=== PATIENT | female | born 1940 | race Caucasian/White ===

== ENCOUNTER 2019-06-20 11:13 | Inpatient (IN) | payer OTHER ==
--- NOTE | 2019-06-20 12:21 | PDOC ---
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 Moldovan speaking only , history per son and through phone with granddaughter. Reports that patient threw up twice in the car, bright yellow/green bile, then another time in a [facility] bathroom, another in ED. After the initial vomitus, patient complained of epigastric pain. Patient has been having diarrhea for the past 2 months since leaving rehab after CVA, has follow up for stool sample results tomorrow. No recent travel, sick contacts, fevers/chills, [place], CP, SOB, urinary changes. Endorses abdominal pain, diarrhea, nausea/vomiting. Past History - Past Medical History Allergies/Adverse Reactions: Allergies Allergy/AdvReac Type Severity Reaction Status Date / Time No Known Allergies Allergy Verified 06/20/19 13:17 Home Medications: Ambulatory Orders Apixaban [Eliquis] 5 mg PO DAILY 06/20/19 Atorvastatin Ca [Lipitor] 80 mg PO HS 06/20/19 Carvedilol [Coreg -] 25 mg PO BID 06/20/19 Lisinopril [Prinivil] 20 mg PO DAILY 06/20/19 Metformin HCl [Glucophage] 500 mg PO BID 06/20/19 Omeprazole 20 mg PO DAILY 06/20/19 Paroxetine HCl [Paxil] 20 mg PO DAILY 06/20/19 Tamsulosin HCl [Flomax -] 0.4 mg PO HS 06/20/19 levETIRAcetam [Keppra -] 500 mg PO BID 06/20/19 Review of Systems - Review of Systems Constitutional: No: Chills, Diaphoresis, Fever HEENTM: No: Recent change in vision, Hearing Loss, Difficulty Swallowing Respiratory: No: Cough, Shortness of Breath Cardiac (ROS): No: Chest Pain, Edema, Chest Tightness ABD/GI: Yes: Diarrhea (2 weeks), Nausea, Vomiting : No: Burning, Dysuria, Discharge, Frequency, Flank Pain Musculoskeletal: No: Back Pain Neurological: Yes: Pre-Existing Deficit (R sided, 2/5 strength in arm and leg, aphasia). No: Headache *Physical Exam - Physical Exam Comments: 06/20/19 13:50 Gen: well-developed, well-nourished, NAD Neuro: non-cooperative with orientation questions, CN II-XII intact, FTN intact with L side, EOMI, PERRLA, 2/5 strength in R arm and leg, 5/5 elsewhere, SILT HEENT: atraumatic, normocephalic, dry mucous membranes Neck: trachea midline, supple CV: regular rate, regular rhythm, no murmurs, rubs, or gallops Pulm: CTA b/l, no wheezing Abd: soft, non-distended, epigastric tenderness MSK: normal musculature, intact pulses Extr: no edema, no deformities Skin: warm, dry ED Treatment Course - LABORATORY CBC & Chemistry Diagram: 06/20/19 12:30 06/20/19 12:30 Medical Decision Making - Medical Decision Making 06/20/19 13:52 Concern for viral gastroenteritis vs ACS vs gastritis v GERD. - CBC, CMP, trop - EKG, CXR - UA/UC - coags - lipase - lactic acid - 1L NS, Zofran, Maalox, Pepcid - reassess 06/20/19 13:56 EKG normal sinus at 60 bpm, LVH, normal intervals, no ST segment elevations or T wave inversions 06/20/19 16:16 CXR no acute changes. WBC 10.4, no left shift. Mg 1.5, repleting with 2g Mg. Will f/u CT abd/pelvis. 06/20/19 16:44 CT abd/pelvis with enteritis, dilated CBD to 2 cm, hepatic steatosis, moderate hiatal hernia. 06/20/19 17:02 Admit for intractable vomiting, can get MRCP while inpatient. 06/20/19 18:42 Son has to go home, phone number is [phone]. Discharge - Discharge Information Problems reviewed: Yes Clinical Impression/Diagnosis: Enteritis, Intractable vomiting, Common bile duct dilation - Follow up/Referral - Patient Discharge Instructions - Post Discharge Activity
[2019-06-20] MEDS ORDERED: SODIUM CHLORIDE 0.9% 500 ML INFUS.BAG IV ONE (12:29)
[2019-06-20 12:50] LABS: BASO % 0.5 % (0-2.0); EOS % 1.4 % (0-4.5); HEMATOCRIT 36.9 % (32.4-45.2); HEMOGLOBIN 12.1 GM/dL (10.7-15.3); LYMPH % 22.7 % (8-40); MCH 28.5 pg (25.7-33.7); MCHC 32.8 g/dl (32.0-36.0); MEAN CELL VOLUME 87.1 fl (80-96); MEAN PLT VOLUME 9.4 fl (7.5-11.1); MONO % 5.6 % (3.8-10.2); NEUT % 69.8 % (42.8-82.8); PLATELET COUNT 204 K/MM3 (134-434); RBC 4.24 M/mm3 (3.60-5.2); RDW 13.9 % (11.6-15.6); WHITE BLOOD COUNT 10.4 K/mm3 (4.0-10.0)
[2019-06-20 13:01] LABS: INR 1.23 (0.83-1.09); PROTHROMBIN TIME (PATIENT) 14.5 SEC (9.7-13.0)
[2019-06-20 13:35] LABS: ALBUMIN 3.9 g/dl (3.4-5.0); ALK PHOS 72 U/L (45-117); ANION GAP 9 MMOL/L (8-16); BILIRUBIN,TOTAL 0.7 mg/dL (0.2-1); CALCIUM 9.1 mg/dL (8.5-10.1); CHLORIDE 105 mmol/L (98-107); CO2 28 mmol/L (21-32); CREATININE 0.6 mg/dL (0.55-1.3); GLUCOSE,RANDOM 156 mg/dL (74-106); LIPASE 75 U/L (73-393); MAGNESIUM 1.5 mg/dL (1.8-2.4); PHOSPHOROUS 3.7 mg/dL (2.5-4.9); POTASSIUM 4.2 mmol/L (3.5-5.1); SGOT/AST 19 U/L (15-37); SGPT/ALT 26 U/L (13-61); SODIUM 141 mmol/L (136-145); TOT PROT 7.4 g/dl (6.4-8.2)
[2019-06-20] MEDS ORDERED: ONDANSETRON 4 MG/2 ML VIAL IVPB ONE (13:47)
[2019-06-20] MEDS ORDERED: MAG HYDROX/AL HYDROX/SIMETH 30 ML UNIT-DOSE CUP PO ONE (13:49)
[2019-06-20] MEDS ORDERED: FAMOTIDINE 20 MG/50 ML IVPB 20 MG/50 ML MG IVPB ONE ×2 (13:49→14:21)
[2019-06-20] MEDS ORDERED: MAGNESIUM SULF 50% (8.12 MEQ/2 ML-1 GM VIAL) IVPB ONE (13:58)
[2019-06-20] MEDS ORDERED: MAG HYDROX/AL HYDROX/SIMETH 30 ML UNIT-DOSE CUP ONE (14:20)
[2019-06-20] MEDS ORDERED: ONDANSETRON 4 MG/2 ML VIAL ONE (14:21)
[2019-06-20] MEDS ORDERED: MAGNESIUM 1GM/D5W - 2 GM/200 ML IVPB IVPB ONE (14:21)
--- NOTE | 2019-06-20 14:45 | EKG ---
Test Reason : Blood Pressure : / mmHG Vent. Rate : 060 BPM Atrial Rate : 060 BPM P-R Int : 146 ms QRS Dur : 082 ms QT Int : 460 ms P-R-T Axes : 021 055 087 degrees QTc Int : 460 ms NORMAL SINUS RHYTHM NONSPECIFIC ST AND T WAVE ABNORMALITY ABNORMAL ECG NO PREVIOUS ECGS AVAILABLE Confirmed by Isiah Westbrook ([id number]) on 06/20/2019 2:44:59 PM Referred By: Confirmed By:Isiah Westbrook
[2019-06-20] MEDS ORDERED: METOCLOPRAMIDE HCL INJECTION 10 MG/2 ML VIAL IVPB ONE (15:12)
--- NOTE | 2019-06-20 15:13 | PDOC ---
Documentation entered by Joselin Tolentino SCRIBE, acting as scribe for Rolo Reyna MD. Rolo Reyna MD: This documentation has been prepared by the Rajan fairbanks Adrianna, SCRIBE, under my direction and personally reviewed by me in its entirety. I confirm that the documentation accurately reflects all work, treatment, procedures, and medical decision making performed by me. Attending Attestation - Resident Resident Name: PoloDavionadam - ED Attending Attestation I have performed the following: I have examined & evaluated the patient, The case was reviewed & discussed with the resident, I agree w/resident's findings & plan, Exceptions are as noted - HPI HPI: The patient is a 78 year old female, with a significant PMH of hypertension, hyperlipidemia, non-insulin dependent diabetes mellitus, coronary artery disease (s/p stent), open heart surgery (~5 years ago), cerebrovascular accident (with residual right sided weakness and aphasia, and gastroesophageal reflux disorder, who presents to the ED for evaluation of nausea, vomit and abdominal pain since earlier today. Patients son provides history. Patient thew up twice today, that was consistent of bright green bile. Patient developed epigastric pain after vomiting. Patient has had diarrhea for the past 2 months, and has a follow up tomorrow for results of stool sample. Allergies: NKA, NKDA Surgical History: Cholecystectomy Social History: Denies EtOH, tobacco, or illicit drug use PCP: NOS - Physicial Exam PE: Vitals: Triage Vital signs reviewed General Appearance: +Mild distress. +Vomited during exam. Cardiac: Regular rate and rhythm, no murmurs, no rubs, no gallops, Lungs: Clear to auscultation bilateral, good air movement bilaterally, Abdomen: +Lower abdominal discomfort. Soft, nondistended, normal bowel sounds, Extremities: Full range of motion to all extremities, no cyanosis, clubbing, or edema Skin: Warm and dry, no rashes or lesions, no petechiae Psych: normal mood, normal affect - Medical Decision Making 78 year old female, with history of hypertension, hyperlipidemia, non-insulin dependent diabetes mellitus, coronary artery disease (s/p stent), open heart surgery (~5 years ago), cerebrovascular accident (with residual right sided weakness and aphasia, and gastroesophageal reflux disorder, presents with nausea , vomit, and abdominal pain. Plan: Labs, urine culture, stool culture, straight cath, ECG, CXR. Will administer mag, ondansetron, famotidine, sodium chloride. Reassess Dr. Salcedo to follow up labs ct and reasses Heart Score/ECG Review - ECG Impressions Comment:: EKG performed at 12:23:53 demonstrates rate of 60bpm, normal sinus rhythm, nonspecific ST and T wave abnormality. ED Treatment Course - LABORATORY CBC & Chemistry Diagram: 06/23/19 06:19 06/23/19 06:19 - ADDITIONAL ORDERS Additional order review: Laboratory Results 06/20/19 06/20/19 06/20/19 12:30 12:30 12:30 PT with INR 14.50 H INR 1.23 H Sodium Potassium Chloride Carbon Dioxide Anion Gap BUN Creatinine Est GFR (CKD-EPI)AfAm Est GFR (CKD-EPI)NonAf Random Glucose Lactic Acid 1.4 Calcium Phosphorus Magnesium Total Bilirubin AST ALT Alkaline Phosphatase Troponin I Cancelled Total Protein Albumin Lipase 06/20/19 06/20/19 06/20/19 12:30 12:30 12:30 PT with INR INR Sodium 141 Potassium 4.2 Chloride 105 Carbon Dioxide 28 Anion Gap 9 BUN 9.0 Creatinine 0.6 Est GFR (CKD-EPI)AfAm 101.90 Est GFR (CKD-EPI)NonAf 87.92 Random Glucose 156 H Lactic Acid Calcium 9.1 Phosphorus Cancelled 3.7 Magnesium Cancelled 1.5 L Total Bilirubin 0.7 AST 19 ALT 26 Alkaline Phosphatase 72 Troponin I < 0.02 Total Protein 7.4 Albumin 3.9 Lipase Cancelled 75 06/20/19 12:30 RBC 4.24 MCV 87.1 MCHC 32.8 RDW 13.9 MPV 9.4 Neutrophils % 69.8 Lymphocytes % 22.7 Monocytes % 5.6 Eosinophils % 1.4 Basophils % 0.5 - RADIOLOGY Radiograph Interpretation: EXAM#: TYPE/EXAM: RESULT: [id number] RAD/CHEST X-RAY PORTABLE* Single view AP portable chest Vomiting Impression: No infiltrate or edema in the lungs, no acute changes noted. Reported By: David Krishna MD 06/20/19 14:29 - Medications Given in the ED: ED Medications Discontinued Medications Generic Name Dose Route Start Last Admin Trade Name Freq PRN Reason Stop Dose Admin Famotidine/Sodium Chloride 20 mg in 50 mls @ 100 mls/hr 06/20/19 13:49 14:31 Pepcid 20 Mg Premixed Ivpb - IVPB 06/20/19 14:18 100 mls/hr ONCE ONE Administration Ondansetron HCl 4 mg 06/20/19 13:47 06/20/19 14:31 Zofran Injection IVPB 06/20/19 13:48 4 mg ONCE ONE Administration Sodium Chloride 1,000 ml 06/20/19 12:29 06/20/19 14:31 Normal Saline - IV 06/20/19 12:30 1,000 ml ONCE ONE Administration
[2019-06-20] MEDS ORDERED: METOCLOPRAMIDE HCL INJECTION 10 MG/2 ML VIAL ONE (15:38)
[2019-06-20 18:44] LABS: EPI CELLS 0.8 /HPF (0-5/HPF); HYALINE CASTS 1 /lpf (0-8); URINE APPEARANCE CLEAR; URINE BACTERIA 0.7 /hpf (NEGATIVE); URINE BILIRUBIN NEGATIVE (NEGATIVE); URINE COLOR YELLOW; URINE GLUCOSE (UA) NEGATIVE (NEGATIVE); URINE KETONE TRACE (NEGATIVE); URINE LEUK ESTERASE NEGATIVE (NEGATIVE); URINE NITRITE NEGATIVE (NEGATIVE); URINE PROTEIN 2+ (NEGATIVE); URINE RBC 2 /hpf (0-4); URINE UROBILINOGEN 0.2 mg/dL (0.2-1.0); URINE WBC 1 /hpf (0-5)
[2019-06-20] MEDS ORDERED: CARVEDILOL 25 MG TABLET (FP) PO ONE (18:46)
[2019-06-20] MEDS ORDERED: LISINOPRIL 20 MG TABLET (FP) PO ONE (18:46)
[2019-06-20] MEDS ORDERED: LISINOPRIL 20 MG TABLET (FP) ONE (19:11)
[2019-06-20] MEDS ORDERED: CARVEDILOL 12.5 MG TABLET (FP) ONE (19:11)
[2019-06-20] MEDS ORDERED: PROCHLORPERAZINE MALEATE 5 MG TABLET PO PRN (19:14)
--- NOTE | 2019-06-20 19:24 | HP ---
CHIEF COMPLAINT: vomiting PCP: Unknown HISTORY OF PRESENT ILLNESS: 78 Kyrgyz-speaking female w/ pmhx of stroke with R sided residual deficits and aphasia, DM, HTN, HLD presents in the ED for persistent vomiting. present at bedside. Pt complained of persistent vomiting starting this morning at 8am 45 min after eating avocado toast w/ butter. Per , pt did not eat anything new, denies sick contacts or recent travel. Pt unable to tolerate food throughout the day until prior to encounter where she was able to drink water. Denies fever, chills, nausea, chest pain, sob, abd pain, urinary symptoms. Of note, pt has a significant hx of chronic diarrhea over the past 6 months for which she was being worked by her PCP with stool culture, ova/parasites, etc; however results still pending. Pt was recently given abx prescribed by PCP about 1 month ago with no improvement with her diarrheal symptoms. ER course was notable for: (1) BP 199/85, max of 230/113 (2) CXR unremarkable, CTAP remarkable for concentric wall thickening suggestive of acute enteritis, +CBD 2cm (3) Recent Travel: Denies PAST MEDICAL HISTORY: As per HPI PAST SURGICAL HISTORY: cholecystectomy open heart surgery, 1 stent placed Social History: Smoking: Former smoker; quit 2 years ago, smoked 1 PPD x40 years Alcohol: Denies Drugs: Denies Allergies No Known Allergies Allergy (Verified 06/20/19 13:17) HOME MEDICATIONS: Home Medications Medication Instructions Recorded Apixaban [Eliquis] 5 mg PO DAILY 06/20/19 Atorvastatin Ca [Lipitor] 80 mg PO HS 06/20/19 Carvedilol [Coreg -] 25 mg PO BID 06/20/19 Lisinopril [Prinivil] 20 mg PO DAILY 06/20/19 Metformin HCl [Glucophage] 500 mg PO BID 06/20/19 Omeprazole 20 mg PO DAILY 06/20/19 Tamsulosin HCl [Flomax -] 0.4 mg PO HS 06/20/19 levETIRAcetam [Keppra -] 500 mg PO BID 06/20/19 REVIEW OF SYSTEMS CONSTITUTIONAL: Absent: fever, chills, diaphoresis, generalized weakness, malaise, loss of appetite, weight change HEENT: Absent: rhinorrhea, nasal congestion, throat pain, throat swelling, difficulty swallowing, mouth swelling, ear pain, eye pain, visual changes CARDIOVASCULAR: Absent: chest pain, syncope, palpitations, irregular heart rate, lightheadedness , peripheral edema RESPIRATORY: Absent: cough, shortness of breath, dyspnea with exertion, orthopnea, wheezing, stridor, hemoptysis GASTROINTESTINAL: +vomiting, +diarrhea Absent: abdominal pain, abdominal distension, nausea, constipation, melena, hematochezia GENITOURINARY: Absent: dysuria, frequency, urgency, hesitancy, hematuria, flank pain, genital pain ENDOCRINE: Absent: unexplained weight gain, unexplained weight loss, heat intolerance, cold intolerance NEUROLOGIC: Absent: headache, focal weakness or paresthesias, dizziness, unsteady gait, seizure, mental status changes, bladder or bowel incontinence PHYSICAL EXAMINATION Vital Signs - 24 hr 06/20/19 06/20/19 06/20/19 11:13 11:40 14:00 Temperature 96.5 F L Pulse Rate 59 L Pulse Rate [ 56 L 57 L Apical] Respiratory 18 23 H 17 Rate Blood Pressure 224/86 H Blood Pressure 189/85 H 189/78 H [Left Arm] O2 Sat by Pulse 100 98 96 Oximetry (%) 06/20/19 06/20/19 06/20/19 15:13 16:30 18:15 Temperature Pulse Rate Pulse Rate [ 61 63 Apical] Respiratory 20 22 H Rate Blood Pressure Blood Pressure 199/85 H 230/113 H 211/80 H [Left Arm] O2 Sat by Pulse 99 99 Oximetry (%) GENERAL: Awake and alert. Pleasant, Kyrgyz-speaking female. NAD. HEENT: AT/NC. EOMI. MMM. Facial symmetry noted. NECK: Normal range of motion, supple without lymphadenopathy, JVD, or masses. LUNGS: CTA B/L. No wheezes, rhonchi, rales noted. Symmetric chest rise. HEART: RRR. Normal S1, S2. No murmurs noted. ABDOMEN: Soft, NT/ND. Normoactive bowel sounds. MUSCULOSKELETAL: Normal range of motion at all joints. No bony deformities or tenderness. No CVA tenderness. EXTREMITIES: No peripheral edema noted. 2+ dorsalis pedis pulses. NEUROLOGICAL: Cranial nerves II-XII intact. +3/5 muscle strength in R u/l extremity. +4/5 muscle strength in L u/l extremity. Aphasic, but understands commands. PSYCHIATRIC: Cooperative. Good eye contact. Appropriate mood and affect. SKIN: Warm, dry, normal turgor, no rashes or lesions noted, normal capillary refill. Laboratory Results - last 24 hr 06/20/19 06/20/19 06/20/19 12:30 12:30 12:30 WBC 10.4 H RBC 4.24 Hgb 12.1 Hct 36.9 MCV 87.1 MCH 28.5 MCHC 32.8 RDW 13.9 Plt Count 204 MPV 9.4 Absolute Neuts (auto) 7.3 Neutrophils % 69.8 Lymphocytes % 22.7 Monocytes % 5.6 Eosinophils % 1.4 Basophils % 0.5 Nucleated RBC % 0 PT with INR INR PTT (Actin FS) Sodium 141 Potassium 4.2 Chloride 105 Carbon Dioxide 28 Anion Gap 9 BUN 9.0 Creatinine 0.6 Est GFR (CKD-EPI)AfAm 101.90 Est GFR (CKD-EPI)NonAf 87.92 Random Glucose 156 H Lactic Acid Calcium 9.1 Phosphorus 3.7 Magnesium 1.5 L Total Bilirubin 0.7 AST 19 ALT 26 Alkaline Phosphatase 72 Troponin I < 0.02 Total Protein 7.4 Albumin 3.9 Lipase 75 Cancelled Urine Color Urine Appearance Urine pH Ur Specific Valley Urine Protein Urine Glucose (UA) Urine Ketones Urine Blood Urine Nitrite Urine Bilirubin Urine Urobilinogen Ur Leukocyte Esterase Urine WBC (Auto) Urine RBC (Auto) Urine Casts (Auto) U Epithel Cells (Auto) Urine Bacteria (Auto) 06/20/19 06/20/19 06/20/19 12:30 12:30 12:30 WBC RBC Hgb Hct MCV MCH MCHC RDW Plt Count MPV Absolute Neuts (auto) Neutrophils % Lymphocytes % Monocytes % Eosinophils % Basophils % Nucleated RBC % PT with INR 14.50 H INR 1.23 H PTT (Actin FS) Sodium Potassium Chloride Carbon Dioxide Anion Gap BUN Creatinine Est GFR (CKD-EPI)AfAm Est GFR (CKD-EPI)NonAf Random Glucose Lactic Acid 1.4 Calcium Phosphorus Cancelled Magnesium Cancelled Total Bilirubin AST ALT Alkaline Phosphatase Troponin I Total Protein Albumin Lipase Urine Color Urine Appearance Urine pH Ur Specific [place] Urine Protein Urine Glucose (UA) Urine Ketones Urine Blood Urine Nitrite Urine Bilirubin Urine Urobilinogen Ur Leukocyte Esterase Urine WBC (Auto) Urine RBC (Auto) Urine Casts (Auto) U Epithel Cells (Auto) Urine Bacteria (Auto) 06/20/19 06/20/19 06/20/19 12:30 12:36 18:10 WBC RBC Hgb Hct MCV MCH MCHC RDW Plt Count MPV Absolute Neuts (auto) Neutrophils % Lymphocytes % Monocytes % Eosinophils % Basophils % Nucleated RBC % PT with INR INR PTT (Actin FS) 31.6 Sodium Potassium Chloride Carbon Dioxide Anion Gap BUN Creatinine Est GFR (CKD-EPI)AfAm Est GFR (CKD-EPI)NonAf Random Glucose Lactic Acid Calcium Phosphorus Magnesium Total Bilirubin AST ALT Alkaline Phosphatase Troponin I Cancelled Total Protein Albumin Lipase Urine Color Yellow Urine Appearance Clear Urine pH 8.0 Ur Specific [place] 1.030 Urine Protein 2+ H Urine Glucose (UA) Negative Urine Ketones Trace H Urine Blood Negative Urine Nitrite Negative Urine Bilirubin Negative Urine Urobilinogen 0.2 Ur Leukocyte Esterase Negative Urine WBC (Auto) 1 Urine RBC (Auto) 2 Urine Casts (Auto) 1 U Epithel Cells (Auto) 0.8 Urine Bacteria (Auto) 0.7 ASSESSMENT/PLAN: 78 [place]yrgyz-only speaking F w/ pmhx of stroke with R sided residual deficits and aphasia, DM, HTN, HLD presents in the ED for persistent vomiting. #Viral Gastroenteritis; No longer vomiting. -CTAP showed findings suggestive of acute enteritis -No abx indicated at this time -Trial on clear liquids, advance diet as tolerated -NS @ 50 -stool cultures/ova and parasites/Cdiff pending -Compazine PRN for nausea #Hypertensive Urgency; Found to be 211/80. No intervention done in ED -Carvedilol 25 x1, and Lisinopril 40 x1 PO given -Goal is to decrease BP no more than 20% over the first 6 hours; serial BP checks -IV Lopressor PRN for systolic BP >180, hold if HR <60 -repeat BP 171/91, cont to monitor -admit to tele -Medications to be confirmed in AM, spoke to family and they will bring in med list tomorrow -EKG showed NSR, QTc 460ms -Cont Carvedilol and Lisinopril #Dilated CBD; 20 mm on CTAP -Hx of cholecystectomy; asymptomatic upon exam -MRCP ordered for further evaluation #Hx of CVA Cont home meds: statin, Keppra, Eliquis (to be confirmed) #Prophylaxis -Cont home Eliquis (to be confirmed) #FEN -NS @ 50 -recheck lyjose d in AM -CLD, adat Dispo -admit to tele Medications to be confirmed with family in AM. Visit type - Emergency Visit Emergency Visit: Yes ED Registration Date: 06/20/19 Care time: The patient presented to the Emergency Department on the above date and was hospitalized for further evaluation of their emergent condition. - New Patient This patient is new to me today: Yes Date on this admission: 06/20/19 - Critical Care Critical Care patient: No ATTENDING PHYSICIAN STATEMENT I saw and evaluated the patient. I reviewed the resident's note and discussed the case with the resident. I agree with the resident's findings and plan as documented. SUBJECTIVE: OBJECTIVE: ASSESSMENT AND PLAN:
[2019-06-20] MEDS ORDERED: METOPROLOL TARTRATE 5 MG/5 ML VIAL IVPUSH PRN ×2 (19:25→19:47)
--- NOTE | 2019-06-20 20:01 | PN ---
Teaching Attending Note Name of Resident: Maxine Mann ATTENDING PHYSICIAN STATEMENT I saw and evaluated the patient. I reviewed the resident's note and discussed the case with the resident. I agree with the resident's findings and plan as documented. SUBJECTIVE: CC: N/v x 1 day HPI: Unable to take any hx form patient as she has some degree of aphasia and family was not around. Dr. Mann spoke to the family who helped withhx. per her, patient had chronic diarrhea x 6 months, which was being w/u by PCP. received a course of Abx for that about a month ago. this am , she started having N/V of non bloody emesis. no fever or chills. In ER , she had a CT of abd /pelvis which showed signs of enteritis and dilated CBD. at presentation her SBP in ER was 224, then improved to 199. No treatment was given . OBJECTIVE: NAD , awake, alert. cooperative HEENT: NC, AT, no facial droop, EOMI, round equal pupils, reactive to light. CV: RRR, 2/6 SM at LUSB. Lungs: CTAB Abd: soft, ND, discomfort in bladder area. NO TTP in upper quadrants. Ext : No edema or erythema . No signs of fungal infection . Neuro : very limited, due to poor cooperation . no facial droop, EOMI, round equal pupils, reactive to light. it is clear that she can moves L side better than R side. not relaxed for reflexes. Unable to evaluate sensation Imaginfg: CT : reviewed. EKG : sinus , resular, Nl axis , no St changes, Qtc 460 ASSESSMENT AND PLAN: Unfortunate 78 y/o lady with h/o HTN, HLP, stroke in with residual R sided weakness, and aphasia, CAD s/p Stents, cardiac sx few years ago, DM, CCY, and other medical problems who presented with N/v x 1. 1- N/V: due due to enteritis. CT reviewed. unclear cause of chronic diarrhea . - IVF - clears for now - if she has diarrhea, will send stool cx and c diff. - might need colonoscopy as out pt for chronic diarrhea. 2- HTN urgency: not treated in Er - gave her home meds. - Now BP 171 /91 on my eval - no sx reported. - will cont her home regimen of lisinopril and metoprolol - place on tele 3- dilated CBD on CT. CBD could be dilated after cholecystectomy , but this is 2 cm. No Abd tenderness or transaminitis . I don't think this is co ntributing to her presentation. - order MRCP 4- H/o CVA : on eliquis at home but dose need to be confirmed ( listed as once daily ) - cont ststin - cont keppra - confirm dose of eliquis and resume 5- DVT px : Eliquis admit to tele due to HTN urgency
[2019-06-20] MEDS ORDERED: PROCHLORPERAZINE INJECTION 10 MG/2 ML VIAL IVPB PRN (20:13)
[2019-06-20] MEDS: SODIUM CHLORIDE 1,000 ML IV SCH (20:23)
[2019-06-20] MEDS ORDERED: APIXABAN 5 MG TABLET PO SCH (20:30)
[2019-06-20] MEDS ORDERED: PARoxetine HCL 10 MG TABLET ONE ×2 (21:08→21:09)
[2019-06-20] MEDS ORDERED: APIXABAN 5 MG TABLET ONE (21:08)
[2019-06-20] MEDS: PARoxetine HCL 20 MG TABLET PO SCH (21:17)
[2019-06-20] MEDS ORDERED: CARVEDILOL 25 MG TABLET (FP) PO SCH (22:00)
[2019-06-20] MEDS ORDERED: levETIRAcetam 500 MG TABLET (FP) PO ONE (22:13)
[2019-06-20] MEDS: levETIRAcetam 500 MG TABLET (FP) PO SCH (22:21)
[2019-06-20] MEDS ORDERED: PROCHLORPERAZINE INJECTION 10 MG/2 ML VIAL ONE (22:43)
[2019-06-21 02:48] VITALS: BMI 24.7
[2019-06-21 07:04] LABS: HEMATOCRIT 33.2 % (32.4-45.2); HEMOGLOBIN 11.4 GM/dL (10.7-15.3); MCH 29.1 pg (25.7-33.7); MCHC 34.2 g/dl (32.0-36.0); MEAN PLT VOLUME 9.2 fl (7.5-11.1); PLATELET COUNT 213 K/MM3 (134-434); RBC 3.91 M/mm3 (3.60-5.2); WHITE BLOOD COUNT 11.7 K/mm3 (4.0-10.0)
[2019-06-21 07:13] LABS: ALBUMIN 3.2 g/dl (3.4-5.0); BILIRUBIN,TOTAL 0.7 mg/dL (0.2-1); BLOOD UREA NITROGEN 10.5 mg/dL (7-18); CREATININE 0.7 mg/dL (0.55-1.3); POTASSIUM 3.5 mmol/L (3.5-5.1); TOT PROT 6.5 g/dl (6.4-8.2)
--- NOTE | 2019-06-21 07:33 | PN ---
Physical Exam: SUBJECTIVE: Patient seen and examined 78 y/o pmh of cva w/ rt sided residual deficits and aphasia, hld, htn, dm, cholecystectomy, open heart surgery, cad s/p stenting, presents w/ vomiting of few hours duration that started this morning at 8 am after breakfast eating avocado toast and butter. Pt has been unable to tolerate anything by mouth except water in th ED. In the ED pt came in w/ Hypertensive urgency as well w/ a BP of 211/80. Pt is at present doing well, afebrile and asymptomatic. Pt has dementia so is confused off and on. Pt currently, has no c/o and would like to go home. Pt's spouse is bedside. Denies f/c/n/v/d, chest pain and sob. OBJECTIVE: Vital Signs Period Temp Pulse Resp BP Sys/Castle Pulse Ox Last 24 Hr 96.5 F-98.1 F 56-74 16-23 117-230/59-113 96-100 GENERAL: The patient is awake, alert, and not fully oriented, in no acute distress. EYES: PERRL, extraocular movements intact, ENT: oropharynx clear without exudates, moist mucous membranes. NECK: supple. LUNGS: Breath sounds equal, clear to auscultation bilaterally, no wheezes, no crackles, no accessory muscle use. HEART: Regular rate and rhythm, S1, S2 without murmur, rub or gallop. ABDOMEN: Soft, nontender, nondistended, normoactive bowel sounds, no guarding, no rebound, EXTREMITIES: 2+ pulses, warm, NEUROLOGICAL: Normal speech, unable to obtain PSYCH: Normal mood, normal affect. SKIN: Warm, dry, Laboratory Results - last 24 hr 06/20/19 06/20/19 06/20/19 12:30 12:30 12:30 WBC 10.4 H RBC 4.24 Hgb 12.1 Hct 36.9 MCV 87.1 MCH 28.5 MCHC 32.8 RDW 13.9 Plt Count 204 MPV 9.4 Absolute Neuts (auto) 7.3 Neutrophils % 69.8 Lymphocytes % 22.7 Monocytes % 5.6 Eosinophils % 1.4 Basophils % 0.5 Nucleated RBC % 0 PT with INR INR PTT (Actin FS) Sodium 141 Potassium 4.2 Chloride 105 Carbon Dioxide 28 Anion Gap 9 BUN 9.0 Creatinine 0.6 Est GFR (CKD-EPI)AfAm 101.90 Est GFR (CKD-EPI)NonAf 87.92 Random Glucose 156 H Lactic Acid Calcium 9.1 Phosphorus 3.7 Magnesium 1.5 L Total Bilirubin 0.7 AST 19 ALT 26 Alkaline Phosphatase 72 Troponin I < 0.02 Total Protein 7.4 Albumin 3.9 Lipase 75 Cancelled Urine Color Urine Appearance Urine pH Ur Specific Chase Urine Protein Urine Glucose (UA) Urine Ketones Urine Blood Urine Nitrite Urine Bilirubin Urine Urobilinogen Ur Leukocyte Esterase Urine WBC (Auto) Urine RBC (Auto) Urine Casts (Auto) U Epithel Cells (Auto) Urine Bacteria (Auto) Active Medications Generic Name Dose Route Start Last Admin Trade Name Freq PRN Reason Stop Dose Admin Apixaban 5 mg 06/20/19 20:30 06/20/19 21:16 Eliquis - PO 5 mg DAILY ROYA Administration Carvedilol 25 mg 06/21/19 10:00 Coreg - PO BID ROYA Sodium Chloride 1,000 mls @ 50 mls/hr 06/20/19 19:15 06/20/19 20:23 Normal Saline - IV 50 mls/hr ASDIR ROYA Administration Levetiracetam 500 mg 06/20/19 22:00 06/20/19 22:21 Keppra - PO 500 mg BID ROYA Administration Lisinopril 20 mg 06/21/19 10:00 Prinivil PO DAILY ROYA Metoprolol Tartrate 5 mg 06/20/19 19:47 Lopressor Injection - IVPUSH Q4H PRN HYPERTENSION (SBP > 180) Paroxetine HCl 20 mg 06/20/19 20:30 06/20/19 21:17 Paxil - PO 20 mg DAILY ROYA Administration Prochlorperazine Edisylate 10 mg 06/20/19 20:13 06/20/19 22:48 Compazine Injection - IVPB 10 mg Q6H PRN Administration NAUSEA AND/OR VOMITING ASSESSMENT/PLAN: 78 y/o ukrainian speaking F, w/ pmh of chornic diarrhea, cholecystectomy, cva w / right residual deficits and aphasia, presents in the ED for persistent vomiting of few hours duration likely 2/2 to gastritis vs enteritis #N/V likely 2/[address] a/p shows finding suggestive of acute eneteritis no abx at this time trial on clear liquids advance diet as tolerated IVF UCx pending nausea control w/ meds might need colonoscopy outpt #Hypocalcemia R/p Ca in am- f/u monitor levels #Hypertensive emergency found with 211/80- no tx in the ED given Carvidilol 25x1, lisinopril 40x1 PO given Lopressor prn if bp >180, hold if HR <60 meds confirmed EKG shows NSR, QTc 460 #CVA continue Eliquis, keppra, statins #Dilated CBD, [address] MRCP- negative #DVT ppx eliquis FEN clear liquids Dispo: cont to monitor, possible discharge tomorrow, monitor Calcium levels Visit type - Emergency Visit Emergency Visit: Yes ED Registration Date: 06/20/19 Care time: The patient presented to the Emergency Department on the above date and was hospitalized for further evaluation of their emergent condition. - New Patient This patient is new to me today: Yes Date on this admission: 06/21/19 - Critical Care Critical Care patient: No - Discharge Referral Referred to [facility] No ATTENDING PHYSICIAN STATEMENT I saw and evaluated the patient. I reviewed the resident's note and discussed the case with the resident. I agree with the resident's findings and plan as documented. SUBJECTIVE: OBJECTIVE: ASSESSMENT AND PLAN:
[2019-06-21 07:41] LABS: MAGNESIUM 1.9 mg/dL (1.8-2.4); PHOSPHOROUS 4.4 mg/dL (2.5-4.9)
[2019-06-21] MEDS: CARVEDILOL 25 MG TABLET (FP) PO SCH ×2 (09:26→21:40)
[2019-06-21] MEDS: LISINOPRIL 20 MG TABLET (FP) PO SCH (09:26)
[2019-06-21] MEDS: levETIRAcetam 500 MG TABLET (FP) PO SCH ×2 (09:26→21:39)
[2019-06-21] MEDS: PARoxetine HCL 20 MG TABLET PO SCH (09:26)
[2019-06-21] MEDS ORDERED: ENOXAPARIN NA (PORCINE) 40 MG/0.4 ML DISP.SYRIN SQ SCH (10:00)
[2019-06-21] MEDS ORDERED: APIXABAN 5 MG TABLET PO SCH (15:14)
--- NOTE | 2019-06-21 20:13 | PN ---
Teaching Attending Note Name of Resident: Renan Salcedo ATTENDING PHYSICIAN STATEMENT I saw and evaluated the patient. I reviewed the resident's note and discussed the case with the resident. I agree with the resident's findings and plan as documented. SUBJECTIVE: Patient is feeling better but unable to tolerate much diet. No further nausea or vomiting. POBJECTIVE: Vital Signs Temperature 98.0 F 06/21/19 17:00 Pulse Rate 57 L 06/21/19 17:00 Respiratory Rate 20 06/21/19 17:00 Blood Pressure 135/66 06/21/19 17:00 O2 Sat by Pulse Oximetry (%) 97 06/21/19 09:00 GENERAL: The patient is awake, alert, and fully oriented, in no acute distress. HEAD: Normal with no signs of trauma. EYES: PERRL, extraocular movements intact, sclera anicteric, conjunctiva clear. ENT: Ears normal, oropharynx clear without exudates, moist mucous membranes. NECK: Trachea midline, full range of motion, supple. LUNGS: Breath sounds equal, clear to auscultation bilaterally, no wheezes, no crackles, no accessory muscle use. HEART: Regular rate and rhythm, S1, S2 without murmur, rub or gallop. ABDOMEN: Soft, NT,ND, normoactive bowel sounds, no guarding, no rebound, no hepatosplenomegaly, no masses. EXTREMITIES: 2+ pulses, warm, well-perfused, no edema. NEUROLOGICAL: Cranial nerves II through XII grossly intact. Normal speech, gait not observed. PSYCH: Normal mood, normal affect. SKIN: Warm, dry, normal turgor, no rashes or lesions noted CBCD WBC 11.7 K/mm3 (4.0-10.0) H 06/21/19 05:55 RBC 3.91 M/mm3 (3.60-5.2) 06/21/19 05:55 Hgb 11.4 GM/dL (10.7-15.3) 06/21/19 05:55 Hct 33.2 % (32.4-45.2) 06/21/19 05:55 MCV 85.0 fl (80-96) 06/21/19 05:55 MCHC 34.2 g/dl (32.0-36.0) 06/21/19 05:55 RDW 14.0 % (11.6-15.6) 06/21/19 05:55 Plt Count 213 K/MM3 (134-434) 06/21/19 05:55 MPV 9.2 fl (7.5-11.1) 06/21/19 05:55 CMP Sodium 140 mmol/L (136-145) 06/21/19 05:55 Potassium 3.5 mmol/L (3.5-5.1) 06/21/19 05:55 Chloride 106 mmol/L (98-107) 06/21/19 05:55 Carbon Dioxide 25 mmol/L (21-32) 06/21/19 05:55 Anion Gap 9 MMOL/L (8-16) 06/21/19 05:55 BUN 10.5 mg/dL (7-18) 06/21/19 05:55 Creatinine 0.7 mg/dL (0.55-1.3) 06/21/19 05:55 Random Glucose 118 mg/dL (74-106) H 06/21/19 05:55 Calcium 8.0 mg/dL (8.5-10.1) L 06/21/19 05:55 Total Bilirubin 0.7 mg/dL (0.2-1) 06/21/19 05:55 AST 15 U/L (15-37) 06/21/19 05:55 ALT 21 U/L (13-61) 06/21/19 05:55 Alkaline Phosphatase 63 U/L (45-117) 06/21/19 05:55 Total Protein 6.5 g/dl (6.4-8.2) 06/21/19 05:55 Albumin 3.2 g/dl (3.4-5.0) L 06/21/19 05:55 CARDIAC ENZYMES Troponin I < 0.02 ng/ml (0.00-0.05) 06/20/19 12:30 Current Medications Generic Name Dose Route Start Last Admin Trade Name Freq PRN Reason Stop Dose Admin Apixaban 5 mg 06/21/19 22:00 Eliquis - PO BID ROYA Carvedilol 25 mg 06/21/19 10:00 06/21/19 09:26 Coreg - PO 25 mg BID ROYA Administration Sodium Chloride 1,000 mls @ 50 mls/hr 06/20/19 19:15 06/20/19 20:23 Normal Saline - IV 50 mls/hr ASDIR ROYA Administration Levetiracetam 500 mg 06/20/19 22:00 06/21/19 09:26 Keppra - PO 500 mg BID ROYA Administration Lisinopril 20 mg 06/21/19 10:00 06/21/19 09:26 Prinivil PO 20 mg DAILY ROYA Administration Metoprolol Tartrate 5 mg 06/20/19 19:47 Lopressor Injection - IVPUSH Q4H PRN HYPERTENSION (SBP > 180) Paroxetine HCl 20 mg 06/20/19 20:30 06/21/19 09:26 Paxil - PO 20 mg DAILY ROYA Administration Prochlorperazine Edisylate 10 mg 06/20/19 20:13 06/20/19 22:48 Compazine Injection - IVPB 10 mg Q6H PRN Administration NAUSEA AND/OR VOMITING Home Medications Medication Instructions Recorded Apixaban [Eliquis] 5 mg PO BID 06/20/19 Atorvastatin Ca [Lipitor] 80 mg PO HS 06/20/19 Carvedilol [Coreg -] 25 mg PO BID 06/20/19 Lisinopril [Prinivil] 20 mg PO DAILY 06/20/19 Metformin HCl [Glucophage] 500 mg PO BID 06/20/19 Omeprazole 20 mg PO DAILY 06/20/19 Tamsulosin HCl [Flomax -] 0.4 mg PO HS 06/20/19 levETIRAcetam [Keppra -] 500 mg PO BID 06/20/19 Melatonin/Pyridoxine HCl (B6) 3 mg PO HS 06/21/19 [Melatonin 3 mg Tablet] Microbiology 06/20/19 18:10 Urine - Urine - Catheterized Urine Culture - Final NO GROWTH OBTAINED ASSESSMENT AND PLAN: Patient is a 78 y/o female with PMHx of HTN, HLP, stroke in with residual R sided weakness, and aphasia, CAD s/p Stents, cardiac sx few years ago , DM, CCY, who presented with N/v. # Acute N/V: improved CT reviewed. # chronic diarrhea . might need colonoscopy as out pt for chronic diarrhea. # HTN urgency: will cont with IV lopressor IV prn/lisinopril and coreg po, monitor in tele # dilated CBD on CT. CBD could be dilated after cholecystectomy , going for MRCP # H/o CVA :on eliquis at home continue , cont statin , usman, for sz precaution DVT px : Eliquis
[2019-06-21] MEDS: APIXABAN 5 MG TABLET PO SCH (21:39)
[2019-06-21] MEDS: SODIUM CHLORIDE 1,000 ML IV SCH (21:40)
[2019-06-22 07:05] LABS: BASO % 0.6 % (0-2.0); EOS % 2.4 % (0-4.5); HEMATOCRIT 30.1 % (32.4-45.2); HEMOGLOBIN 10.5 GM/dL (10.7-15.3); LYMPH % 43.4 % (8-40); MCH 29.9 pg (25.7-33.7); MCHC 34.8 g/dl (32.0-36.0); MEAN CELL VOLUME 85.7 fl (80-96); MEAN PLT VOLUME 9.4 fl (7.5-11.1); MONO % 8.3 % (3.8-10.2); NEUT % 45.3 % (42.8-82.8); PLATELET COUNT 177 K/MM3 (134-434); RBC 3.51 M/mm3 (3.60-5.2); RDW 13.6 % (11.6-15.6); WHITE BLOOD COUNT 7.6 K/mm3 (4.0-10.0)
[2019-06-22 07:54] LABS: ALBUMIN 3.2 g/dl (3.4-5.0); BILIRUBIN,TOTAL 0.9 mg/dL (0.2-1); BLOOD UREA NITROGEN 10.4 mg/dL (7-18); CREATININE 0.6 mg/dL (0.55-1.3); MAGNESIUM 1.8 mg/dL (1.8-2.4); POTASSIUM 3.4 mmol/L (3.5-5.1); TOT PROT 5.9 g/dl (6.4-8.2)
[2019-06-22] MEDS: levETIRAcetam 500 MG TABLET (FP) PO SCH ×2 (09:23→21:18)
[2019-06-22] MEDS: CARVEDILOL 25 MG TABLET (FP) PO SCH ×2 (09:23→21:18)
[2019-06-22] MEDS: PARoxetine HCL 20 MG TABLET PO SCH (09:23)
[2019-06-22] MEDS: LISINOPRIL 20 MG TABLET (FP) PO SCH (09:23)
[2019-06-22] MEDS: APIXABAN 5 MG TABLET PO SCH ×2 (09:23→21:18)
[2019-06-22] MEDS ORDERED: POTASSIUM CHLORIDE TABS 20 MEQ TABLET.ER (FP) PO ONE (11:00)
[2019-06-22] MEDS ORDERED: POTASSIUM CHLORIDE ORAL LIQUID 20 MEQ/15 ML PO ONE (11:22)
--- NOTE | 2019-06-22 15:57 | PN ---
Teaching Attending Note Name of Resident: Renan Salcedo ATTENDING PHYSICIAN STATEMENT I saw and evaluated the patient. I reviewed the resident's note and discussed the case with the resident. I agree with the resident's findings and plan as documented. SUBJECTIVE: Patient is feeling better, at bedside. OBJECTIVE: Vital Signs Temperature 97.8 F 06/22/19 09:00 Pulse Rate 59 L 06/22/19 10:23 Respiratory Rate 20 06/22/19 10:23 Blood Pressure 149/77 06/22/19 10:23 O2 Sat by Pulse Oximetry (%) 96 06/22/19 09:00 GENERAL: The patient is awake, alert, but confused and does not make sense at times . in no acute distress. HEAD: Normal with no signs of trauma. EYES: PERRL, extraocular movements intact, sclera anicteric, conjunctiva clear. ENT: Ears normal, oropharynx clear without exudates, moist mucous membranes. NECK: Trachea midline, full range of motion, supple. LUNGS: Breath sounds equal, clear to auscultation bilaterally, no wheezes, no crackles, no accessory muscle use. HEART: Regular rate and rhythm, S1, S2 without murmur, rub or gallop. ABDOMEN: Soft, nontender, nondistended, normoactive bowel sounds, no guarding, no rebound, no hepatosplenomegaly, no masses. EXTREMITIES: 2+ pulses, warm, well-perfused, no edema. NEUROLOGICAL: Cranial nerves II through XII grossly intact. gait not observed. speech is slurred PSYCH: Normal mood, normal affect. SKIN: Warm, dry, normal turgor, no rashes or lesions noted CBCD WBC 7.6 K/mm3 (4.0-10.0) 06/22/19 05:50 RBC 3.51 M/mm3 (3.60-5.2) L 06/22/19 05:50 Hgb 10.5 GM/dL (10.7-15.3) L 06/22/19 05:50 Hct 30.1 % (32.4-45.2) L 06/22/19 05:50 MCV 85.7 fl (80-96) 06/22/19 05:50 MCHC 34.8 g/dl (32.0-36.0) 06/22/19 05:50 RDW 13.6 % (11.6-15.6) 06/22/19 05:50 Plt Count 177 K/MM3 (134-434) 06/22/19 05:50 MPV 9.4 fl (7.5-11.1) 06/22/19 05:50 CMP Sodium 142 mmol/L (136-145) 06/22/19 05:50 Potassium 3.4 mmol/L (3.5-5.1) L 06/22/19 05:50 Chloride 109 mmol/L (98-107) H 06/22/19 05:50 Carbon Dioxide 25 mmol/L (21-32) 06/22/19 05:50 Anion Gap 7 MMOL/L (8-16) L 06/22/19 05:50 BUN 10.4 mg/dL (7-18) 06/22/19 05:50 Creatinine 0.6 mg/dL (0.55-1.3) 06/22/19 05:50 Random Glucose 112 mg/dL (74-106) H 06/22/19 05:50 Calcium 8.0 mg/dL (8.5-10.1) L 06/22/19 05:50 Total Bilirubin 0.9 mg/dL (0.2-1) 06/22/19 05:50 AST 13 U/L (15-37) L 06/22/19 05:50 ALT 18 U/L (13-61) 06/22/19 05:50 Alkaline Phosphatase 56 U/L (45-117) 06/22/19 05:50 Total Protein 5.9 g/dl (6.4-8.2) L 06/22/19 05:50 Albumin 3.2 g/dl (3.4-5.0) L 06/22/19 05:50 CARDIAC ENZYMES Troponin I < 0.02 ng/ml (0.00-0.05) 06/20/19 12:30 Current Medications Generic Name Dose Route Start Last Admin Trade Name Freq PRN Reason Stop Dose Admin Apixaban 5 mg 06/21/19 22:00 06/22/19 09:23 Eliquis - PO 5 mg BID ROYA Administration Carvedilol 25 mg 06/21/19 10:00 06/22/19 09:23 Coreg - PO 25 mg BID ROYA Administration Levetiracetam 500 mg 06/20/19 22:00 06/22/19 09:23 Keppra - PO 500 mg BID ROYA Administration Lisinopril 20 mg 06/21/19 10:00 06/22/19 09:23 Prinivil PO 20 mg DAILY ROYA Administration Metoprolol Tartrate 5 mg 06/20/19 19:47 Lopressor Injection - IVPUSH Q4H PRN HYPERTENSION (SBP > 180) Paroxetine HCl 20 mg 06/20/19 20:30 06/22/19 09:23 Paxil - PO 20 mg DAILY ROYA Administration Home Medications Medication Instructions Recorded Apixaban [Eliquis] 5 mg PO BID 06/20/19 Atorvastatin Ca [Lipitor] 80 mg PO HS 06/20/19 Carvedilol [Coreg -] 25 mg PO BID 06/20/19 Lisinopril [Prinivil] 20 mg PO DAILY 06/20/19 Metformin HCl [Glucophage] 500 mg PO BID 06/20/19 Omeprazole 20 mg PO DAILY 06/20/19 Tamsulosin HCl [Flomax -] 0.4 mg PO HS 06/20/19 levETIRAcetam [Keppra -] 500 mg PO BID 06/20/19 Melatonin/Pyridoxine HCl (B6) 3 mg PO HS 06/21/19 [Melatonin 3 mg Tablet] 06/20/19 18:10 Urine - Urine - Catheterized Urine Culture - Final NO GROWTH OBTAINED ASSESSMENT AND PLAN: Patient is a 78 y/o female with PMHx of HTN, HLP, stroke in with residual R sided weakness, and aphasia, CAD s/p Stents, cardiac sx few years ago , DM, CCY, who presented with N/v. # Acute N/V: improved CT reviewed. # chronic diarrhea . might need colonoscopy as out pt for chronic diarrhea. # HTN urgency: will cont with IV lopressor IV prn/lisinopril and coreg po, monitor in tele # dilated CBD on CT. CBD could be dilated after cholecystectomy , going for MRCP # H/o CVA :on eliquis at home continue , cont statin , keppra, for sz precaution DVT px : Eliquis
--- NOTE | 2019-06-22 17:20 | DS ---
Physical Exam: SUBJECTIVE: Patient seen and examined. Patient is an nigerian speaking female so had to translate with son nearby. Patient is stable, afebrile, asymptomatic and not in any discomfort or distress. Patients symptoms have resolved. OBJECTIVE: Vital Signs Period Temp Pulse Resp BP Sys/Castle Pulse Ox Last 24 Hr 97.6 F-98.9 F 57-64 18-20 149-179/72-80 96-96 PHYSICAL EXAM GENERAL: The patient is awake, alert, and not fully oriented, in no acute distress. EYES: PERRL, extraocular movements intact, ENT: oropharynx clear without exudates, moist mucous membranes. NECK: supple. LUNGS: Breath sounds equal, clear to auscultation bilaterally, no wheezes, no crackles, no accessory muscle use. HEART: Regular rate and rhythm, S1, S2 without murmur, rub or gallop. ABDOMEN: Soft, nontender, nondistended, normoactive bowel sounds, no guarding, no rebound, EXTREMITIES: 2+ pulses, warm, NEUROLOGICAL: Normal speech, unable to obtain PSYCH: Normal mood, normal affect. SKIN: Warm, dry, LABS Laboratory Results - last 24 hr 06/21/19 06/22/19 06/22/19 20:57 05:50 05:50 WBC 7.6 RBC 3.51 L Hgb 10.5 L Hct 30.1 L MCV 85.7 MCH 29.9 MCHC 34.8 RDW 13.6 Plt Count 177 MPV 9.4 Absolute Neuts (auto) 3.4 Neutrophils % 45.3 D Lymphocytes % 43.4 H D Monocytes % 8.3 Eosinophils % 2.4 Basophils % 0.6 Nucleated RBC % 0 Sodium 142 Potassium 3.4 L Chloride 109 H Carbon Dioxide 25 Anion Gap 7 L BUN 10.4 Creatinine 0.6 Est GFR (CKD-EPI)AfAm 101.90 Est GFR (CKD-EPI)NonAf 87.92 POC Glucometer 126 Random Glucose 112 H Calcium 8.0 L Magnesium 1.8 Total Bilirubin 0.9 AST 13 L ALT 18 Alkaline Phosphatase 56 Total Protein 5.9 L Albumin 3.2 L HOSPITAL COURSE: Date of Admission:06/20/19 78 y/o Somali speaking F, w/ pmh of chornic diarrhea, cholecystectomy, cva w / right residual deficits and aphasia, presents in the ED for persistent vomiting of few hours duration likely 2/2 to gastritis vs enteritis. Patient also presented with hypertensive urgency for which she was treated w/ lopressor , carvidilol and lisinopril. Her BP normalized after treatment. In regards to her vomiting, it had self resolved with out intervention. Patient was kept on clear liquids, fluid and electrolytes were repleted. Further testing was done including Blood culture, CXR and CT a/p, which findings suggestive of acute enteritis and dilated CBD. MRCP was done as per GI consult and patient was found to have a stricture/Achalasia. Therefore, patient was [facility] for higher level of care including possible US guided endoscopy. CT a/p shows finding suggestive of acute enteritis and dilated CBD EKG shows NSR, QTc 460 MRCP: Dilated CHD and CBD w/ apparently narrowed distal CBD-bird's beak appearance. Date of Discharge: 06/22/19 Discharge Summary Problems reviewed: Yes Reason For Visit: INTRACTABLE CYCLICAL VOMITING Current Active Problems Common bile duct dilation (Acute) Enteritis (Acute) Intractable vomiting (Acute) - Instructions Referrals: ON STAFF,NOT [Primary Care Provider] - - Home Medications Comprehensive Discharge Medication List: Ambulatory Orders Apixaban [Eliquis] 5 mg PO BID 06/20/19 Atorvastatin Ca [Lipitor] 80 mg PO HS 06/20/19 Carvedilol [Coreg -] 25 mg PO BID 06/20/19 Lisinopril [Prinivil] 20 mg PO DAILY 06/20/19 Metformin HCl [Glucophage] 500 mg PO BID 06/20/19 Omeprazole 20 mg PO DAILY 06/20/19 Tamsulosin HCl [Flomax -] 0.4 mg PO HS 06/20/19 levETIRAcetam [Keppra -] 500 mg PO BID 06/20/19 Melatonin/Pyridoxine HCl (B6) [Melatonin 3 mg Tablet] 3 mg PO HS 06/21/19 - Discharge Referral Referred to [facility] No ATTENDING PHYSICIAN STATEMENT I saw and evaluated the patient. I reviewed the resident's note and discussed the case with the resident. I agree with the resident's findings and plan as documented. SUBJECTIVE: OBJECTIVE: ASSESSMENT AND PLAN:
--- NOTE | 2019-06-22 17:28 | CON.GI ---
Consult Consult Specialty:: GI Referred by:: Hospitalist Service Reason for Consultation:: Nausea, vomiting, diarrhea - History of Present Illness Chief Complaint: History obtained from granddaughter via telephone: Ms. Live had difficulty using [employer] application development due to her dialect. Called her son and he speaks limited burmese. He asked that I speak with his daughter History of Present Illness: 78F admitted 06/20 for evaluation of N/V/D. No N/V/D reported since admission per patient's nurse. Tolerated food brought inby her son (soupl with potato). Per her granddaughter, Mr. Live has not had similar symptoms in the past and that this is the first time that this has occurred. There has been no reported rectal bleeding or melena. Her granddaughter believes that she had an upper endoscopy in the past. She is uncertain if she has had a colonoscopy. MRCP revealed dilated common hepatic duct, CBD and birds beak appearance of distal CBD raising question of stricture, spasm, s/p cholecystectomy physiology or choledochal cyst. Liver chemistries have remained normal. jejunal loops on initial CT scan revealed wall thickening raising question of an enteritis.Per H& P she was being worked up for 6 months of diarrhea. There has been no diarrhea since admission. She has a PMD in [place]. 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: CVA (10/18) Cardio/Vascular: Yes: HTN, Hyperlipdemia Gastrointestinal: Yes: GERD - Past Surgical History Additional Surgical History: Pelvic surgery, (unclear) - Alcohol/Substance Use Hx Alcohol Use: No History of Substance Use: reports: None - Smoking History Smoking history: Unknown if ever smoked - Social History Usual Living Arrangement: With Child Place of : Other ([facility]) History of Recent Travel: No Home Medications - Allergies Allergies/Adverse Reactions: Allergies Allergy/AdvReac Type Severity Reaction Status Date / Time No Known Allergies Allergy Verified 06/20/19 13:17 - Home Medications Home Medications: Ambulatory Orders Apixaban [Eliquis] 5 mg PO BID 06/20/19 Atorvastatin Ca [Lipitor] 80 mg PO HS 06/20/19 Carvedilol [Coreg -] 25 mg PO BID 06/20/19 Lisinopril [Prinivil] 20 mg PO DAILY 06/20/19 Metformin HCl [Glucophage] 500 mg PO BID 06/20/19 Omeprazole 20 mg PO DAILY 06/20/19 Tamsulosin HCl [Flomax -] 0.4 mg PO HS 06/20/19 levETIRAcetam [Keppra -] 500 mg PO BID 06/20/19 Melatonin/Pyridoxine HCl (B6) [Melatonin 3 mg Tablet] 3 mg PO HS 06/21/19 Review of Systems - Review of Systems Gastrointestinal: reports: Diarrhea (resolved), Vomiting (resolved) Physical Exam-GI Vital Signs: Vital Signs Temperature 97.8 F 06/22/19 09:00 Pulse Rate 59 L 06/22/19 10:23 Respiratory Rate 20 06/22/19 10:23 Blood Pressure 149/77 06/22/19 10:23 O2 Sat by Pulse Oximetry (%) 96 06/22/19 09:00 Constitutional: Yes: Calm Eyes: No: Sclera Icterus Cardiovascular: Yes: Regular Rate and Rhythm Respiratory: Yes: CTA Bilaterally Gastrointestinal Inspection: Yes: Scars (midline pelvic surgical scar) ...Auscultate: Yes: Normoactive Bowel Sounds ...Palpate: Yes: Soft. No: Hepatomegaly, Tenderness (no grimacing upon palpation) ...Percussion: No: Tympanitic Edema: No (No LE edema) Neurological: Yes: Alert Labs: CBC, BMP 06/22/19 05:50 06/22/19 05:50 INR, PTT INR 1.23 (0.83-1.09) H 06/20/19 12:30 Hepatic Panel Total Bilirubin 0.9 mg/dL (0.2-1) 06/22/19 05:50 AST 13 U/L (15-37) L 06/22/19 05:50 ALT 18 U/L (13-61) 06/22/19 05:50 Alkaline Phosphatase 56 U/L (45-117) 06/22/19 05:50 Albumin 3.2 g/dl (3.4-5.0) L 06/22/19 05:50 Imaging - Results Cat Scan: Report Reviewed, Image Reviewed MRI: Report Reviewed Problem List - Problems (1) Nausea and vomiting Assessment/Plan: Acute onset of nausea and vomiting that seems to have resolved. Given findings of enteritis on admission CT scan, self limited gastroenteritis would need to be considered. If diarrhea persists, stool for culture, O&P, Norovirus C. Diff. Advance diet as tolerated. Code(s): R11.2 - NAUSEA WITH VOMITING, UNSPECIFIED (2) Common bile duct dilation Assessment/Plan: Dilated biliary tract with normal liver chemistries. Think this is likely a chronic finding that can be followed up with endoscopic ultrasound when acute issues are resolved and when anticoagulation can be held in the setting of recent CVA. This can be arranged as an outpatient with referral to Dr. Porter Gabriel at [facility]. Discussed case wtih Dr. Loaiza and patient's granddaughter. Code(s): K83.8 - OTHER SPECIFIED DISEASES OF BILIARY TRACT
[2019-06-23 05:56] VITALS: PULSE 60
[2019-06-23 06:47] LABS: BASO % 0.8 % (0-2.0); EOS % 3.3 % (0-4.5); HEMATOCRIT 33.1 % (32.4-45.2); HEMOGLOBIN 11.3 GM/dL (10.7-15.3); LYMPH % 39.2 % (8-40); MCHC 34.1 g/dl (32.0-36.0); MEAN CELL VOLUME 85.1 fl (80-96); MEAN PLT VOLUME 8.8 fl (7.5-11.1); MONO % 8.7 % (3.8-10.2); PLATELET COUNT 190 K/MM3 (134-434); RBC 3.89 M/mm3 (3.60-5.2); RDW 13.5 % (11.6-15.6); WHITE BLOOD COUNT 7.5 K/mm3 (4.0-10.0)
[2019-06-23 07:28] LABS: ALBUMIN 3.3 g/dl (3.4-5.0); BILIRUBIN,TOTAL 0.9 mg/dL (0.2-1); BLOOD UREA NITROGEN 7.6 mg/dL (7-18); CALCIUM 8.5 mg/dL (8.5-10.1); CREATININE 0.6 mg/dL (0.55-1.3); POTASSIUM 3.7 mmol/L (3.5-5.1); TOT PROT 6.4 g/dl (6.4-8.2)
[2019-06-23] MEDS: PARoxetine HCL 20 MG TABLET PO SCH (09:27)
[2019-06-23] MEDS: APIXABAN 5 MG TABLET PO SCH (09:27)
[2019-06-23] MEDS: LISINOPRIL 20 MG TABLET (FP) PO SCH (09:27)
[2019-06-23] MEDS: CARVEDILOL 25 MG TABLET (FP) PO SCH (09:27)
[2019-06-23] MEDS: levETIRAcetam 500 MG TABLET (FP) PO SCH (09:27)
--- NOTE | 2019-06-23 10:20 | CONSULT ---
Admitting History and Physical - Primary Care Physician PCP: Loyd Lassiter - Admission History of Present Illness: 78 y/o Amharic speaking F, w/ pmh of chornic diarrhea, cholecystectomy, cva w / right residual deficits and aphasia, presents in the ED for persistent vomiting of few hours duration MRCP revealed dilated common hepatic duct, CBD and birds beak appearance of distal CBD raising question of stricture, spasm, s/p cholecystectomy physiology or choledochal cyst Obtained hx from son and his daughter due to language barrier. Pt had a stroke in Sep and they feel she is confused but wasnt before this. Pt is clearly Aphasic, suspect Moderate to Severe, with comprehension and expresion deficits. She seems oriented and aware. She had speech tx for 2 weeks in [facility] only. Additionally, they report pt gets stomach pains and reflux. Upon review of swallowing behaviors, pt reclines after breakfast, lunch and dinner, having dinner at 6 and in bed at 7. Counseled them on eliminating coffee and upright 2 hours after meals and no food within 3 hours of bedtime. 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) Cardiovascular: Yes: HTN, Hyperlipdemia Gastrointestinal: Yes: GERD - Smoking History Smoking history: Unknown if ever smoked - Alcohol/Substance Use Hx Alcohol Use: No History of Substance Use: reports: None - Social History History of Recent Travel: No History - Admission Reason For Visit: INTRACTABLE CYCLICAL VOMITING - Diagnostics X-ray: Report Reviewed CT Scan: Report Reviewed - General Mental Status: Alert and Oriented, Awake and Alert Attention: Intact Ability to Follow Directions: Fair (simple commands?) Head/Neck Control: Good - Hearing Hearing: Functional Speech Evaluation - Communication Primary Language: MALDIVIAN (Amharic ONLY) Communication: Yes: Aphasia Oral Expression Ability: Yes: Moderate Impairment, Severe Impairment - Speech Production Able to Make Needs Known: Yes: Moderately Impaired, Severely Impaired Intelligibility: Yes: WNL - Speech Characteristics Voice Loudness: Normal Voice Pitch: Yes: Normal Voice Phonatory-based Quality: Yes: Normal Speech Pattern: Impaired Speech Clarity: < 25% Nasal Resonance: Normal Articulation: Yes: Precise - Language/Auditory Comprehension Follows: Yes: 1 Stage Simple Commands (possibly) Observation: Comprehends Conversational Speech: Yes (possibly simple. Needs Amharic eval) - Language/Verbal Expression Aphasia: Yes: Fluent, Paraphrasic Errors, Neologisms Able to Communicate Wants and Needs: Yes: Moderately Impaired, Severely Impaired Functional Communication Status: Yes: Moderately Impaired, Severely Impaired - Swallow Evaluation/Bedside Assessment Current Nutritional Intake: Clear Liquids Oral Secretions: Yes: WFL Dentition: Yes: Adequate Facial Symmetry at Rest: Symmetrical Facial Symmetry on Retraction: Symmetrical Facial Movement: Controlled Against Resistance Opening: Normal Against Resistance Closing: Normal Pucker Lips: Normal Lingual Movement: Symmetric Lingual Speed of Movement: Normal Lingual Movement Strgth Against Opposition: Normal Lingual Movement Characteristics: Normal Velopharyngeal Movement: Normal Laryngeal Elevation: WFL Laryngeal Movement: Able to Palpate Rate of Intake: WFL Bolus Size: WFL Labial Seal: WFL Chewing: WFL Oral Prep Time: WFL A-P Transit: WFL Pocketing: None Timing of Swallow: WFL Coughing/Throat Clear: No Change in Voice: No Recommendations - Speech Evaluation, Impression/Plan Impression: Admitted after vomiting. Has been on clears. GI recommends advance diet as tolerated. Swallowing eval ordered. Oral/pharyngeal swallow intact. Pt is significantly Aphasic with need for speech tx in Amharic.Additionally, pt has reflux but drinks coffee and reclines after all meals. - Dysphagia Impressions/Plan Swallowing Skills: [facility] Dysphagia Impressions: No Impairment *Silent aspiration: cannot be R/O at bedside Dysphagia Treatment Plan: OOB for meals, OOB for 1 h. after meals, Other ( eliminating coffee and upright 2 hours after meals and no food within 3 hours of bedtime.) Recommendations: Other (Speech tx- Family advised to ask at their sikh/ community for a possible Amharic speaking Sp Path) - Recommendations Diet Consistency: Regular, Other (Monitor for vomiting. f/u GI as indicated) Medication Administration: Whole with water Liquids: Thin Liquids
[2019-06-23 10:56] VITALS: BP 160/94; TEMP 98.2
--- NOTE | 2019-06-23 14:22 | PN ---
Teaching Attending Note Name of Resident: Renan Salcedo ATTENDING PHYSICIAN STATEMENT I saw and evaluated the patient. I reviewed the resident's note and discussed the case with the resident. I agree with the resident's findings and plan as documented. SUBJECTIVE: pATIENT HAS no new complains. OBJECTIVE: Vital Signs Temperature 98.2 F 06/23/19 09:00 Pulse Rate 60 06/23/19 09:00 Respiratory Rate 20 06/23/19 09:00 Blood Pressure 160/94 06/23/19 09:00 O2 Sat by Pulse Oximetry (%) 97 06/23/19 09:00 GENERAL: The patient is awake, alert, but confused and does not make sense at times, in no acute distress. HEAD: Normal with no signs of trauma. EYES: PERRL, extraocular movements intact, sclera anicteric, conjunctiva clear. ENT: Ears normal, oropharynx clear without exudates, moist mucous membranes. NECK: Trachea midline, full range of motion, supple. LUNGS: Breath sounds equal, clear to auscultation bilaterally, no wheezes, no crackles, no accessory muscle use. HEART: Regular rate and rhythm, S1, S2 without murmur, rub or gallop. ABDOMEN: Soft, nontender, nondistended, normoactive bowel sounds, no guarding, no rebound, no hepatosplenomegaly, no masses. EXTREMITIES: 2+ pulses, warm, well-perfused, no edema. NEUROLOGICAL: Cranial nerves II through XII grossly intact. gait not observed. speech is slurred PSYCH: Normal mood, normal affect. SKIN: Warm, dry, normal turgor, no rashes or lesions noted CBCD WBC 7.5 K/mm3 (4.0-10.0) 06/23/19 06:19 RBC 3.89 M/mm3 (3.60-5.2) 06/23/19 06:19 Hgb 11.3 GM/dL (10.7-15.3) 06/23/19 06:19 Hct 33.1 % (32.4-45.2) 06/23/19 06:19 MCV 85.1 fl (80-96) 06/23/19 06:19 MCHC 34.1 g/dl (32.0-36.0) 06/23/19 06:19 RDW 13.5 % (11.6-15.6) 06/23/19 06:19 Plt Count 190 K/MM3 (134-434) 06/23/19 06:19 MPV 8.8 fl (7.5-11.1) 06/23/19 06:19 CMP Sodium 140 mmol/L (136-145) 06/23/19 06:19 Potassium 3.7 mmol/L (3.5-5.1) 06/23/19 06:19 Chloride 107 mmol/L (98-107) 06/23/19 06:19 Carbon Dioxide 26 mmol/L (21-32) 06/23/19 06:19 Anion Gap 8 MMOL/L (8-16) 06/23/19 06:19 BUN 7.6 mg/dL (7-18) 06/23/19 06:19 Creatinine 0.6 mg/dL (0.55-1.3) 06/23/19 06:19 Random Glucose 123 mg/dL (74-106) H 06/23/19 06:19 Calcium 8.5 mg/dL (8.5-10.1) 06/23/19 06:19 Total Bilirubin 0.9 mg/dL (0.2-1) 06/23/19 06:19 AST 13 U/L (15-37) L 06/23/19 06:19 ALT 20 U/L (13-61) 06/23/19 06:19 Alkaline Phosphatase 60 U/L (45-117) 06/23/19 06:19 Total Protein 6.4 g/dl (6.4-8.2) 06/23/19 06:19 Albumin 3.3 g/dl (3.4-5.0) L 06/23/19 06:19 CARDIAC ENZYMES Troponin I < 0.02 ng/ml (0.00-0.05) 06/20/19 12:30 Current Medications Generic Name Dose Route Start Last Admin Trade Name Freq PRN Reason Stop Dose Admin Apixaban 5 mg 06/21/19 22:00 06/23/19 09:27 Eliquis - PO 5 mg BID ROYA Administration Carvedilol 25 mg 06/21/19 10:00 06/23/19 09:27 Coreg - PO 25 mg BID ROYA Administration Levetiracetam 500 mg 06/20/19 22:00 06/23/19 09:27 Keppra - PO 500 mg BID ROYA Administration Lisinopril 20 mg 06/21/19 10:00 06/23/19 09:27 Prinivil PO 20 mg DAILY ROYA Administration Metoprolol Tartrate 5 mg 06/20/19 19:47 Lopressor Injection - IVPUSH Q4H PRN HYPERTENSION (SBP > 180) Paroxetine HCl 20 mg 06/20/19 20:30 06/23/19 09:27 Paxil - PO 20 mg DAILY ROYA Administration Home Medications Medication Instructions Recorded Apixaban [Eliquis] 5 mg PO BID 06/20/19 Atorvastatin Ca [Lipitor] 80 mg PO HS 06/20/19 Carvedilol [Coreg -] 25 mg PO BID 06/20/19 Lisinopril [Prinivil] 20 mg PO DAILY 06/20/19 Metformin HCl [Glucophage] 500 mg PO BID 06/20/19 Omeprazole 20 mg PO DAILY 06/20/19 Tamsulosin HCl [Flomax -] 0.4 mg PO HS 06/20/19 levETIRAcetam [Keppra -] 500 mg PO BID 06/20/19 Melatonin/Pyridoxine HCl (B6) 3 mg PO HS 06/21/19 [Melatonin 3 mg Tablet] MRI of the abdomen: dilated CHD and CBD with apparently narrowed distal CBD- bird beak appearance. No choldecholithiasis seen. mri reviewed ASSESSMENT AND PLAN: Patient is a 78 y/o female with PMHx of HTN, HLP, stroke in with residual R sided weakness, and aphasia, CAD s/p Stents, cardiac sx few years ago , DM, CCY, who presented with N/v. # Acute N/V: improved CT reviewed. # chronic diarrhea . improved , colonoscopy as out pt for chronic diarrhea. # HTN urgency: will discharge the patient on coreg /lisinopril # dilated CBD on CT and MRI result as above . patient will follow up with Dr. Porter JEFF at [facility]. # H/o CVA :on eliquis at home continue , cont statin , keppra, for sz precaution patient tolerated diet will be discharged home.
--- NOTE | 2019-06-23 14:28 | DS ---
Physical Exam: SUBJECTIVE: Patient seen and examined. Patient is an austrian speaking female so had to translate with son nearby. Patient is stable, afebrile, asymptomatic and not in any discomfort or distress. Patients symptoms have resolved. OBJECTIVE: Vital Signs Period Temp Pulse Resp BP Sys/Castle Pulse Ox Last 24 Hr 97.7 F-98.5 F 60-62 18-20 157-185/65-94 97-97 PHYSICAL EXAM GENERAL: The patient is awake, alert, and not fully oriented, in no acute distress. EYES: PERRL, extraocular movements intact, ENT: oropharynx clear without exudates, moist mucous membranes. NECK: supple. LUNGS: Breath sounds equal, clear to auscultation bilaterally, no wheezes, no crackles, no accessory muscle use. HEART: Regular rate and rhythm, S1, S2 without murmur, rub or gallop. ABDOMEN: Soft, nontender, nondistended, normoactive bowel sounds, no guarding, no rebound, EXTREMITIES: 2+ pulses, warm, NEUROLOGICAL: Normal speech, unable to obtain PSYCH: Normal mood, normal affect. SKIN: Warm, dry, LABS Laboratory Results - last 24 hr 06/23/19 06/23/19 06/23/19 05:58 06:19 06:19 WBC 7.5 RBC 3.89 Hgb 11.3 Hct 33.1 MCV 85.1 MCH 29.0 MCHC 34.1 RDW 13.5 Plt Count 190 MPV 8.8 Absolute Neuts (auto) 3.6 Neutrophils % 48.0 Lymphocytes % 39.2 Monocytes % 8.7 Eosinophils % 3.3 Basophils % 0.8 Nucleated RBC % 0 Sodium 140 Potassium 3.7 Chloride 107 Carbon Dioxide 26 Anion Gap 8 BUN 7.6 Creatinine 0.6 Est GFR (CKD-EPI)AfAm 101.90 Est GFR (CKD-EPI)NonAf 87.92 POC Glucometer 130 Random Glucose 123 H Calcium 8.5 Total Bilirubin 0.9 AST 13 L ALT 20 Alkaline Phosphatase 60 Total Protein 6.4 Albumin 3.3 L HOSPITAL COURSE: Date of Admission:06/20/19 78 y/o Divehi speaking F, w/ pmh of chornic diarrhea, cholecystectomy, cva w / right residual deficits and aphasia, presents in the ED for persistent vomiting of few hours duration likely 2/2 to gastritis vs enteritis. Patient also presented with hypertensive urgency for which she was treated w/ lopressor , carvidilol and lisinopril. Her BP normalized after treatment. In regards to her vomiting, it had self resolved with out intervention. Patient was kept on clear liquids, fluid and electrolytes were repleted. Further testing was done including Blood culture, CXR and CT a/p, which findings suggestive of acute enteritis and dilated CBD. MRCP was done as per GI consult and patient was found to have a stricture/Achalasia. Pt is to f/u with Dr. Mimi Gabriel outpatient to treat her achalasia. CT a/p shows finding suggestive of acute enteritis and dilated CBD EKG shows NSR, QTc 460 MRCP: Dilated CHD and CBD w/ apparently narrowed distal CBD-bird's beak appearance. Date of Discharge: 06/23/19 Discharge Summary Problems reviewed: Yes Reason For Visit: INTRACTABLE CYCLICAL VOMITING Current Active Problems Common bile duct dilation (Chronic) Condition: Improved - Instructions Diet, Activity, Other Instructions: You we admitted to the hospital for nausea, vomiting, and very high blood pressure. While you were here, we treated your blood pressure with medications to bring it down to normal. We also treated your nausea and vomiting with medications, which resolved your symptoms. We did tests, including blood work and imaging ( CAT Scan and MRI) of your stomach which found some narrowing. For this narrowing please follow up outpatient with Dr. Tasia Gabriel for any further imaging or question. We have provided you with his information so you can make an appointment in one week. Continue all your home medications as prescribed Follow up with your Primary care doctor within 1 week. Return to the emergency department if you have chest pain, shortness of breath. nausea, vomiting, or worsening of your symptoms. Referrals: tasia Gabriel [Other] - 1 Week [facility] [place] [facility] [place] [Provider Group] Adriano Martinez DO [Staff Physician] - 1 Week Disposition: HOME - Home Medications Comprehensive Discharge Medication List: Ambulatory Orders Apixaban [Eliquis] 5 mg PO BID 06/20/19 Atorvastatin Ca [Lipitor] 80 mg PO HS 06/20/19 Carvedilol [Coreg -] 25 mg PO BID 06/20/19 Lisinopril [Prinivil] 20 mg PO DAILY 06/20/19 Metformin HCl [Glucophage] 500 mg PO BID 06/20/19 Omeprazole 20 mg PO DAILY 06/20/19 Tamsulosin HCl [Flomax -] 0.4 mg PO HS 06/20/19 levETIRAcetam [Keppra -] 500 mg PO BID 06/20/19 Melatonin/Pyridoxine HCl (B6) [Melatonin 3 mg Tablet] 3 mg PO HS 06/21/19 - Discharge Referral Referred to [facility] No ATTENDING PHYSICIAN STATEMENT I saw and evaluated the patient. I reviewed the resident's note and discussed the case with the resident. I agree with the resident's findings and plan as documented. SUBJECTIVE: OBJECTIVE: ASSESSMENT AND PLAN:
== END 2019-06-23 14:58 | disposition home or self-care (01) | DRG 445 ==
LOC: JER 11:13 → JERBED 17:12 → J4W 06-21 01:43
PROVIDERS: ADMIT Internal Medicine; ATTEND Internal Medicine
DX: K82.8 Other specified diseases of gallbladder (principal); I69.351 Hemiplegia and hemiparesis following cerebral infarction affecting right dominant side; E78.5 Hyperlipidemia, unspecified; I10 Essential (primary) hypertension; I69.320 Aphasia following cerebral infarction; I25.10 Atherosclerotic heart disease of native coronary artery without angina pectoris; K21.9 Gastro-esophageal reflux disease without esophagitis; I16.0 Hypertensive urgency; A08.4 Viral intestinal infection, unspecified; E83.51 Hypocalcemia; R11.2 Nausea with vomiting, unspecified; Z95.1 Presence of aortocoronary bypass graft; Z95.5 Presence of coronary angioplasty implant and graft
CPT/HCPCS: 36415; 71045-TC-FY; 74177-TC; 74181-TC; 80053; 81003; 82962; 83605; 83690; 83735; 84100; 84484; 85025; 85027; 85610; 85730; 87086; 93005; 93010; 97116-GP; 97161-GP; 99285-25; J7030